=== PATIENT | male | born 1970 | race Caucasian/White ===

== ENCOUNTER → 2019-03-18 11:20 | Outpatient (BNVA) | payer BC, SELFPAY | PROVIDERS: Family Provider Nurse Practitioner Family; PCP Nurse Practitioner Family; Visit Provider Nurse Practitioner Family | DX: E07.9 Disorder of thyroid, unspecified (principal) | CPT/HCPCS: 36415; 84443 ==

== ENCOUNTER → 2019-05-22 10:24 | Outpatient (BNVA) | payer BC, SELFPAY | PROVIDERS: Family Provider Nurse Practitioner Family; PCP Nurse Practitioner Family; Visit Provider Nurse Practitioner Family | DX: Z79.899 Other long term (current) drug therapy (principal); E03.9 Hypothyroidism, unspecified; E78.2 Mixed hyperlipidemia; E55.9 Vitamin D deficiency, unspecified; J30.89 Other allergic rhinitis | CPT/HCPCS: 80053; 80061; 81001; 82306; 83036; 84443; 85025 ==

== ENCOUNTER → 2019-07-05 00:01 | Outpatient (BNVA) | payer BC, SELFPAY | PROVIDERS: Family Provider Nurse Practitioner Family; PCP Nurse Practitioner Family; Visit Provider Nurse Practitioner Family | DX: E03.9 Hypothyroidism, unspecified (principal) | CPT/HCPCS: 84443 ==

== ENCOUNTER → 2019-08-26 10:35 | Outpatient (BNVA) | payer BC, SELFPAY | PROVIDERS: Family Provider Nurse Practitioner Family; PCP Nurse Practitioner Family; Visit Provider Family Medicine | DX: E03.9 Hypothyroidism, unspecified (principal); D64.9 Anemia, unspecified | CPT/HCPCS: 82607; 82746; 83540; 84443; 85025 ==

== ENCOUNTER → 2019-08-29 12:20 | Outpatient (BNVA) | payer BC, SELFPAY | PROVIDERS: Family Provider Nurse Practitioner Family; PCP Nurse Practitioner Family; Visit Provider Nurse Practitioner Family | DX: D64.9 Anemia, unspecified (principal) | CPT/HCPCS: 82270; 82274; 85025 ==

== ENCOUNTER → 2019-10-28 10:10 | Outpatient (BNVA) | payer BC, SELFPAY | PROVIDERS: Family Provider Nurse Practitioner Family; PCP Nurse Practitioner Family; Visit Provider Nurse Practitioner Family | DX: E03.9 Hypothyroidism, unspecified (principal); D64.9 Anemia, unspecified | CPT/HCPCS: 36415; 83540; 84439; 84443; 84481 ==

== ENCOUNTER → 2019-11-27 13:49 | Outpatient (BNVA) | payer BC, SELFPAY | PROVIDERS: Family Provider Nurse Practitioner Family; PCP Nurse Practitioner Family; Visit Provider Nurse Practitioner Family | DX: E03.9 Hypothyroidism, unspecified (principal) | CPT/HCPCS: 84443 ==

== ENCOUNTER → 2020-02-11 09:44 | Outpatient (BNVA) | payer BC, SELFPAY | PROVIDERS: Family Provider Nurse Practitioner Family; PCP Nurse Practitioner Family; Visit Provider Nurse Practitioner Family | DX: E03.9 Hypothyroidism, unspecified (principal); R53.83 Other fatigue; Z79.899 Other long term (current) drug therapy | CPT/HCPCS: 80053; 81003; 83036; 84439; 84443; 84481; 85025 ==

== ENCOUNTER 2020-03-06 12:28 | Outpatient (CLI) | payer OTHER, SELFPAY ==
[2020-03-06] MEDS: iohexol 300 mg/mL 100 mL Btl IV (12:57)
--- NOTE | 2020-03-06 15:00 | CT_ITS ---
WS: [id number] CT ABDOMEN PELVIS TECHNIQUE: Contrast-enhanced CT of the abdomen and pelvis with coronal and sagittal reformatted image s. CLINICAL INFORMATION: R10.9 - Unspecified abdominal pain COMPARISON: None. DLP: All CT scans at [facility] use at least one of these dose optimization techniques: automat ed exposure control; mA and/or kV adjustment per patient size (includes targeted exams where dose is matched to clinical indication); or iterative reconstruction. FINDINGS:Mild circumferential wall thickening with submucosal enhancement involving the transverse co consuelo with a small amount of induration. Findings can be seen with infectious or inflammatory colitis. Recommend correlation for infection. Sigmoid colon is normal. No abdominal or pelvic lymphadenopathy. Small bowel appears normal. Normal terminal ileum. Diffuse fatty infiltration of the liver. Normal portal vein and splenic vein. Normal gallbladder. Nor mal GE junction. Normal spleen. Normal pancreas. Lung bases are well aerated. Adrenal glands are norm al. Normal renal parenchymal enhancement. No hydronephrosis. Left renal cyst measuring 2.0 CM. Normal caliber abdominal aorta. Normal sigmoid colon. No evidence of small or large bowel obstruction. No free fluid in the abdomen o r pelvis. Prominent prostate for patient this age measuring 4.5 cm. Recommend correlation PSA. Normal lumbar spine. CT/CT abdomen pelvis w con* [id number] IMPRESSION: 1. Mild diffuse thickening with submucosal enhancement and induration about th e transverse colon. Findings can be seen with infectious or inflammatory coliti s. Recommend clinical correlation. 2. Remainder of the colon appears normal. Normal small bowel. Normal terminal ileum. 3. No abdominal or pelvic lymphadenopathy. 4. Slightly prominent prostate for patient this age measuring 4.4 CM. Recommen d correlation PSA. 5. Incidental simple cyst left kidney measuring 2.0 CCM. 6. Small fat-containing umbilical hernia.
== END 2020-03-06 12:29 | disposition home or self-care (01) ==
LOC: RADWPI 12:32
PROVIDERS: PCP Nurse Practitioner Family; Visit Provider Family Medicine
DX: R10.9 Unspecified abdominal pain (principal); K42.9 Umbilical hernia without obstruction or gangrene; N28.1 Cyst of kidney, acquired; N40.0 Benign prostatic hyperplasia without lower urinary tract symptoms
CPT/HCPCS: 74177; Q9967

== ENCOUNTER → 2020-03-09 09:11 | Outpatient (BNVA) | payer OTHER, SELFPAY | PROVIDERS: PCP Nurse Practitioner Family; Visit Provider Nurse Practitioner Family | DX: Z12.5 Encounter for screening for malignant neoplasm of prostate (principal); N40.0 Benign prostatic hyperplasia without lower urinary tract symptoms; K92.1 Melena; K63.9 Disease of intestine, unspecified; R63.4 Abnormal weight loss; R10.30 Lower abdominal pain, unspecified | CPT/HCPCS: G0103 ==

== ENCOUNTER → 2020-03-16 15:21 | Outpatient (BNVA) | payer OTHER, SELFPAY | PROVIDERS: PCP Nurse Practitioner Family; Visit Provider Internal Medicine | DX: K63.9 Disease of intestine, unspecified (principal); Z01.812 Encounter for preprocedural laboratory examination; K92.1 Melena; Z20.828 Contact with and (suspected) exposure to other viral communicable diseases | CPT/HCPCS: 87635 ==

== ENCOUNTER 2020-03-20 07:54 | Day surgery (SDC) | payer OTHER, SELFPAY ==
[2020-03-18 13:30] VITALS: BMI 21.5
[2020-03-20 08:02] VITALS: BP 126/88; PULSE 77; RESP 16; TEMP 36.6; O2SAT 98
[2020-03-20] MEDS: sodium chloride 0.9% 1,000 ML 30 ML IV (08:18)
--- NOTE | 2020-03-20 08:27 | P.ANESASSM_ITS ---
Pre-Anesthetic Assessment Pre-Anesthetic Assessment: Height/Weight: Height 1.83 m Weight 72.121 kg Temp Pulse Resp BP Pulse Ox 98 F 77 16 126/88 98 03/20/20 08:02 03/20/20 08:02 03/20/20 08:02 03/20/20 08:02 03/20/20 08:02 Preop Diagnosis: colon wall thickening Proposed Procedure: Operation Date: 03/20/20 09:00 Proposed Procedures p EGD [id number] Z63.9 Z01.812(Not Applicable) - Kevin Landrum MD s Colonoscopy(Not Applicable) - Kevin Landrum MD Familial anesthetic complications: None Was Beta Gabby taken within 24 hours: N/A Last intake: Intake Last Liquid Date 03/19/20 Last Liquid Time 19:00 Last Solid Date 03/18/20 Last Solid Time 20:00 Social: Social History: No alcohol and No tobacco Exam: Pre-Anes Outpt Exam: alert, oriented x 3, clear to auscultation bilaterally and regular rate & rhythm Airway: Cervical ROM: WNL MP: 2 Dentition: Partials (plates) Additional comments: heller CV/HEM: CV/HEM: MO (2006 - doing well since, works in the [employer], very active) Comments: able to achieve > 4 METS Metabolic: Metabolic: Thyroid Anesthetic Plan: ASA status: 3 Anesthesia: MAC Risk of > 500 ml blood loss (7ml/kg in children): No Meds/Allergies Current Medications: Current Medications Generic Name Dose Route Start Last Admin Trade Name Freq PRN Reason Stop Dose Admin Sodium Chloride 1,000 mls @ 30 ml s/hr 03/20/20 08:00 03/20/20 08:18 Sodium Chloride 0.9% IV 03/21/20 07:59 30 mls/hr .Q24H DEBRA Administration PFSH Anesthesia PFSH: Medical History Blood in stool Colon wall thickening Encounter for medication management Enlarged prostate Environmental and seasonal allergies Fatigue GERD (gastroesophageal reflux disease) Hypothyroid Prostate cancer screening Seasonal allergic rhinitis Vitamin D deficiency Social History (Updated 03/16/20 @ 14:07 by JAVED Michelle) Smoking and tobacco status: never smoked Second hand smoke exposure: No Desire information about alcohol rehabilitation?: No Counseling given: No Desire information about substance/drug rehabilitation?: No Counseling given: No History of recent travel: No Data Anesthesia Cardiac Studies: No Data to Display
--- NOTE | 2020-03-20 09:21 | W.PM.OPSFHP ---
Same Day Surgery H&P Indication for Procedure/HPI DATE OF PROCEDURE: March 20, 2020 CHIEF COMPLAINT/INDICATIONFOR SURGICAL PROCEDURE: Blood in stool PREOP DIAGNOSIS: colon wall thickening PLANNED PROCEDRUE: Operation Date: 03/20/20 09:00 Proposed Procedures p EGD [id number] Z63.9 Z01.812(Not Applicable) - Kevin Landrum MD s Colonoscopy(Not Applicable) - Kevin Landrum MD Medications/Allergies* Allergies/Adverse Reactions Allergy/AdvReac Type Severity Reaction Status Date / Time Sulfa (Sulfonamide Allergy ADR-Itching Verified 03/20/20 07:59 Antibiotics) codeine AdvReac sick Verified 03/16/20 14:04 Current Medications: Generic Name Dose Route Start Last Admin Trade Name Freq PRN Reason Stop Dose Admin Sodium Chloride 1,000 mls @ 30 mls/hr 03/20/20 08:00 03/20/20 08:18 Sodium Chloride 0.9% IV 03/21/20 07:59 30 mls/hr .Q24H DEBRA Administration Pertinent History/Comorbid Conditions* Medical History (Updated 03/09/20 @ 22:00 by ASIA Lewis) Blood in stool Colon wall thickening Encounter for medication management Enlarged prostate Environmental and seasonal allergies Fatigue GERD (gastroesophageal reflux disease) Hypothyroid Prostate cancer screening Seasonal allergic rhinitis Vitamin D deficiency Social History Smoking and tobacco status: never smoked Second hand smoke exposure: No Desire information about alcohol rehabilitation?: No Counseling given: No Desire information about substance/drug rehabilitation?: No Counseling given: No History of recent travel: No Pertinent Exam Findings alert, oriented x 3, clear to auscultation bilaterally, regular rate & rhythm, operative site marked and procedure specific exam findings Recommendations Surgery/Procedure today Coding Level of Care Code Acute Server Software Engineer for Sourav Sequeira
[2020-03-20 09:48] VITALS: BP 103/78; PULSE 87; RESP 18; TEMP 36.1; O2SAT 97
--- NOTE | 2020-03-20 09:48 | ANE.PACU2 ---
Inpatient post-anesthesia follow up: Airway intact: Yes Vital signs: Temperature 98 F Pulse Rate 77 Respiratory Rate 16 Blood Pressure 126/88 Pulse Oximetry 98 Oxygen Delivery Me thod Room Air Oxygen Flow Rate Fraction of Inspir ed Oxygen Hydration adequate: Yes Nausea and vomiting: No Mental status: Baseline
[2020-03-20 10:22] VITALS: BP 123/73; PULSE 73; RESP 18; O2SAT 98
[2020-03-21 17:25] LABS: H. Pylori / CLO Test Negative
== END 2020-03-20 10:28 | disposition home or self-care (01) ==
PROVIDERS: PCP Nurse Practitioner Family; Visit Provider Internal Medicine
PROC: 0DJ08ZZ Inspection of Upper Intestinal Tract, Via Natural or Artificial Opening Endoscopic (ICD-10-PCS; CPT 43235; principal; 2020-03-20 09:00)
PROC: 0DJD8ZZ Inspection of Lower Intestinal Tract, Via Natural or Artificial Opening Endoscopic (ICD-10-PCS; CPT 45378; 2020-03-20 09:00)
DX: K92.1 Melena (principal); K63.9 Disease of intestine, unspecified; K29.70 Gastritis, unspecified, without bleeding; K21.9 Gastro-esophageal reflux disease without esophagitis; E03.9 Hypothyroidism, unspecified; R63.4 Abnormal weight loss; Z68.21 Body mass index [BMI] 21.0-21.9, adult; I25.2 Old myocardial infarction
CPT/HCPCS: 12345; 43239; 45378; 82274; 83630; 87077; 87493; 87506; J2704; J3490; J7030

== ENCOUNTER → 2020-05-14 11:25 | Outpatient (BNVA) | payer OTHER, SELFPAY | PROVIDERS: PCP Nurse Practitioner Family; Visit Provider Nurse Practitioner Family | DX: E78.2 Mixed hyperlipidemia (principal); E03.9 Hypothyroidism, unspecified; R53.83 Other fatigue; E55.9 Vitamin D deficiency, unspecified; J30.89 Other allergic rhinitis; Z79.899 Other long term (current) drug therapy | CPT/HCPCS: 80053; 80061; 81003; 82306; 83036; 83921; 84439; 84443; 84481; 85025 ==

== ENCOUNTER → 2020-06-24 12:05 | Outpatient (BNVA) | payer OTHER, SELFPAY | PROVIDERS: PCP Nurse Practitioner Family; Visit Provider Nurse Practitioner Family | DX: E03.9 Hypothyroidism, unspecified (principal) | CPT/HCPCS: 84443 ==

== ENCOUNTER → 2020-07-23 11:56 | Outpatient (BNVA) | payer OTHER, SELFPAY | PROVIDERS: PCP Nurse Practitioner Family; Visit Provider Nurse Practitioner Family | DX: E78.2 Mixed hyperlipidemia (principal); E03.9 Hypothyroidism, unspecified; R53.83 Other fatigue; D64.9 Anemia, unspecified | CPT/HCPCS: 80053; 80061; 82607; 82728; 83550; 84402; 84403; 84443; 85025 ==

== ENCOUNTER 2020-09-08 07:56 | Outpatient (CLI) | payer OTHER, SELFPAY ==
--- NOTE | 2020-09-08 08:00 | USCV_ITS ---
Sanders Cristobal Age: 49 Gender: M : 1970 Exam Date: 09/08/2020 08:08 Ordering Phys: JAYDEN Chand APRN Technologist: Anita Angeles Exam Location: [facility] [place] Indication: Bradycardia, other medical treatment, unspecified BP: / HR: 43 Rhythm: Sinus Technical Quality: Adequate MEASUREMENTS (Male / Female) Normal Values 2D ECHO LV Diastolic Diameter PLAX 3.9 cm 4.2 - 5.9 / 3.9 - 5.3 cm LV Systolic Diameter PLAX 3.1 cm LV Chamber Size 4.0 cm IVS Diastolic Thickness 1.5 cm 0.6 - 1.0 / 0.6 - 0.9 cm IVS Systolic Thickness 1.8 cm LVPW Diastolic Thickness 1.7 cm 0.6 - 1.0 / 0.6 - 0.9 cm LVPW Systolic Thickness 1.7 cm RV Chamber Size 2.2 cm LVOT Diameter 2.0 cm LV Ejection Fraction 2D Teich 40.6 % LV Ejection Fraction MOD 2C 64.2 % LV Ejection Fraction 2C AL 68.1 % LA Diameter 3.7 cm LA Width 2.6 cm LA Height 4.4 cm RA Width 2.9 cm RA Height 3.8 cm Aorta at Sinotubular Diameter 3.5 cm M-MODE LV Diastolic Diameter MM 4.6 cm 4.2 - 5.9 / 3.9 - 5.3 cm LV Systolic Diameter MM 2.7 cm LV Ejection Fraction MM Teich 72.0 % IVS Diastolic Thickness MM 1.1 cm 0.6 - 1.0 / 0.6 - 0.9 cm IVS Systolic Thickness MM 1.6 cm LVPW Diastolic Thickness MM 0.8 cm 0.6 - 1.0 / 0.6 - 0.9 cm LVPW Systolic Thickness MM 1.4 cm RV Diastolic Diameter MM 1.4 cm Aortic Annulus Diameter 3.7 cm LA Ao Ratio MM 1.1 MV E Point Septal Separation 0.4 cm DOPPLER AV Peak Velocity 118.0 cm/s LVOT Peak Velocity 94.0 cm/s AV Area Cont Eq vti 2.7 cm squared AV Area Cont Eq pk 2.6 cm squared MV Area PHT 2.6 cm squared Mitral E to A Ratio 1.9 MV E' Velocity 81.0 cm/s TR Peak Velocity 103.3 cm/s TR Peak Gradient 4.3 mmHg TR Mean Velocity 77.1 cm/s TR Mean Gradient 2.6 mmHg TR Velocity Time Integral 26.7 cm TV Peak E Velocity 57.0 cm/s PV Peak Velocity 56.0 cm/s RV Acceleration Time 0.2 s RV Ejection Time 0.4 s RV AcT/ET 0.5 FINDINGS Left Ventricle Normal left ventricular size, systolic function and upper normal wall thickness, with no regional wall motion abnormalities. Left ventricular ejection fraction is estimated at 60-65 %. Normal mitral inflow pattern. Right Ventricle Normal right ventricular size and systolic function. Normal right ventricle systolic pressure. Right Atrium Normal right atrial size. Right atrial pressure estimated at 3 mmHg. Left Atrium Normal left atrial size. Mitral Valve Structurally normal mitral valve. No mitral valve stenosis. Trace mitral valve regurgitation. Aortic Valve Structurally normal trileaflet aortic valve. No aortic valve stenosis. No aortic valve regurgitation. Tricuspid Valve Structurally normal tricuspid valve. No tricuspid valve stenosis. Trace tricuspid valve regurgitation. Pulmonic Valve Structurally normal pulmonic valve. No pulmonary valve stenosis. Trace pulmonary valve regurgitation. Pericardium No pericardial effusion. Aorta Normal size aortic root and proximal ascending aorta. Normal- sized inferior vena cava with normal respiratory variation. CONCLUSIONS 1. Normal left ventricular size, systolic function and upper normal wall thickness, with no regional wall motion abnormalities. Left ventricular ejection fraction is estimated at 65 %. 2. Normal right ventricular size and systolic function. 3. No significant valvular abnormality. 4. Normal pulmonary artery pressure. 5. There may not have been any significant change when compared to old echocardiogram dated 07/01/2016. Lacie Tuttle MD (Electronically Signed) Final Date: 08 September 2020 14:50 S
== END 2020-09-08 07:57 | disposition home or self-care (01) ==
PROVIDERS: PCP Nurse Practitioner Family; Visit Provider Nurse Practitioner Family
DX: Z92.89 Personal history of other medical treatment (principal); R06.02 Shortness of breath; R00.1 Bradycardia, unspecified
CPT/HCPCS: 93306

== ENCOUNTER → 2020-09-17 16:38 | Outpatient (BNVA) | payer SELFPAY | PROVIDERS: PCP Nurse Practitioner Family; Visit Provider Nurse Practitioner Family | DX: Z11.52 Encounter for screening for COVID-19 (principal); J22 Unspecified acute lower respiratory infection; R06.02 Shortness of breath | CPT/HCPCS: 87635 ==

== ENCOUNTER → 2020-11-11 12:01 | Outpatient (BNVA) | payer OTHER, SELFPAY | PROVIDERS: PCP Nurse Practitioner Family; Visit Provider Nurse Practitioner Family | DX: E55.9 Vitamin D deficiency, unspecified (principal); E03.9 Hypothyroidism, unspecified; J30.89 Other allergic rhinitis; J01.90 Acute sinusitis, unspecified; B96.89 Other specified bacterial agents as the cause of diseases classified elsewhere | CPT/HCPCS: 82306; 84443 ==

== ENCOUNTER → 2020-12-28 14:39 | Outpatient (BNVA) | payer OTHER, SELFPAY | PROVIDERS: PCP Nurse Practitioner Family; Visit Provider Nurse Practitioner Family | DX: E03.9 Hypothyroidism, unspecified (principal); R53.83 Other fatigue; E55.9 Vitamin D deficiency, unspecified | CPT/HCPCS: 80053; 82306; 84439; 84443; 85025 ==

== ENCOUNTER 2021-03-05 12:24 | Outpatient (CLI) | payer OTHER, SELFPAY ==
--- NOTE | 2021-03-05 12:45 | US_ITS ---
WS: [id number] THYROID ULTRASOUND HISTORY: E04.1 - Nontoxic single thyroid nodule COMPARISON: None available. Right lobe: 0.7 cm x 1.3 cm x 2.8 cm (w x ap x l). Volume: 1.4 cm3. Small heterogeneous thyroid. No discrete nodules or increased vascularity. Surface of the thyroid is very nodular. Left lobe: 0.7 cm x 1.1 cm x 3.7 cm (w x ap x l). Volume: 1.6 cm3. Small heterogeneous thyroid. No discrete nodules. No increased vascularity. No adenopathy. Isthmus: 0.3 cm. US/US thyroid [id number] IMPRESSION: Small shrunken heterogeneous thyroid. No nodules.
== END 2021-03-05 12:25 | disposition home or self-care (01) ==
LOC: RAD 12:26
PROVIDERS: PCP Nurse Practitioner Family; Visit Provider Family Medicine
DX: E04.1 Nontoxic single thyroid nodule (principal)
CPT/HCPCS: 76536

== ENCOUNTER → 2021-06-29 08:40 | Outpatient (BNVA) | payer OTHER, SELFPAY | PROVIDERS: PCP Nurse Practitioner Family; Visit Provider Nurse Practitioner | DX: I10 Essential (primary) hypertension (principal); E78.2 Mixed hyperlipidemia; J30.2 Other seasonal allergic rhinitis | CPT/HCPCS: 80061 ==

== ENCOUNTER → 2021-10-26 09:47 | Outpatient (BNVA) | payer OTHER, SELFPAY | PROVIDERS: PCP Nurse Practitioner Family; Visit Provider Nurse Practitioner Family | DX: I10 Essential (primary) hypertension (principal); E55.9 Vitamin D deficiency, unspecified; E78.2 Mixed hyperlipidemia; E03.9 Hypothyroidism, unspecified; R53.83 Other fatigue; E04.1 Nontoxic single thyroid nodule; R93.89 Abnormal findings on diagnostic imaging of other specified body structures | CPT/HCPCS: 80053; 80061; 82306; 84443; 85025 ==

== ENCOUNTER → 2022-06-23 15:35 | Outpatient (BNVA) | payer MEDICAID, SELFPAY | PROVIDERS: PCP Nurse Practitioner Family; Visit Provider Family Medicine | DX: J06.9 Acute upper respiratory infection, unspecified (principal); R06.02 Shortness of breath | CPT/HCPCS: 71046; 80053; 80061; 83880; 84145; 84443; 85025; 86140 ==

== ENCOUNTER → 2023-01-05 13:12 | Outpatient (BNVA) | payer OTHER, SELFPAY | PROVIDERS: PCP Nurse Practitioner Family; Visit Provider Physician Assistant | DX: M25.511 Pain in right shoulder (principal); M75.41 Impingement syndrome of right shoulder | CPT/HCPCS: 73030 ==

== ENCOUNTER → 2023-01-17 11:35 | Outpatient (BNVA) | payer OTHER, SELFPAY | PROVIDERS: PCP Nurse Practitioner Family; Visit Provider Nurse Practitioner Family | DX: J01.90 Acute sinusitis, unspecified (principal); I10 Essential (primary) hypertension; E03.9 Hypothyroidism, unspecified; E78.2 Mixed hyperlipidemia; E55.9 Vitamin D deficiency, unspecified; Z79.899 Other long term (current) drug therapy | CPT/HCPCS: 87071; 87880 ==

== ENCOUNTER → 2023-01-23 09:25 | Outpatient (BNVA) | payer OTHER, SELFPAY | PROVIDERS: PCP Nurse Practitioner Family; Visit Provider Nurse Practitioner Family | DX: E03.9 Hypothyroidism, unspecified (principal); E55.9 Vitamin D deficiency, unspecified; E78.2 Mixed hyperlipidemia; I10 Essential (primary) hypertension; Z79.899 Other long term (current) drug therapy; Z12.5 Encounter for screening for malignant neoplasm of prostate | CPT/HCPCS: 80053; 80061; 81003; 82306; 83036; 84439; 84443; 84481; 85025; G0103 ==

== ENCOUNTER → 2023-02-01 09:53 | Outpatient (BNVA) | payer OTHER, SELFPAY | PROVIDERS: PCP Nurse Practitioner Family; Visit Provider Nurse Practitioner Family | DX: E78.2 Mixed hyperlipidemia (principal); J22 Unspecified acute lower respiratory infection | CPT/HCPCS: 71046 ==

== ENCOUNTER → 2023-02-15 16:06 | Outpatient (BNVA) | payer OTHER, SELFPAY | PROVIDERS: PCP Nurse Practitioner Family; Visit Provider Nurse Practitioner Family | DX: R05.9 Cough, unspecified (principal); R05.3 Chronic cough; R06.02 Shortness of breath | CPT/HCPCS: 71046; 82785; 86003 ==

== ENCOUNTER 2023-03-23 09:47 | Outpatient (CLI) | payer OTHER, SELFPAY ==
--- NOTE | 2023-03-23 10:15 | MR_ITS ---
WS: [id number] MRI RIGHT SHOULDER HISTORY: shoulder pain COMPARISON: Radiographs 01/05/2023 TECHNIQUE: Multiplanar sequences of the shoulder joint are submitted. Mild AC joint arthritis. Small osteophytes encroaching upon the myotendinous portion supraspinatus. M ild subacromial impingement. No significant subacromial or subdeltoid fluid. Normal position of the b iceps tendon. No os acromion. No muscle atrophy or edema. There is moderate fraying of the distal supraspinatus tendon involving gonzalez th the bursal and articular surfaces of the tendon. Greater involvement along the articular surface w ith a partial tear of the distal tendon involving the articular surface. This is a small tear measuri ng approximately 5 mm. No tendon retraction. No additional tendinopathy or tendon tear. No labral tea r. IMPRESSION: 1. Tendinopathy involving the distal supraspinatus tendon with fraying along the both the articular and bursal surfaces of the tendon. 2. Partial tear involves the distal articular surface of the supraspinatus tendon. 3. No muscle atrophy or edema. 4. Mild AC joint arthritis. 5. Minimal subacromial impingement.
== END 2023-03-23 09:48 | disposition home or self-care (01) ==
LOC: RAD 09:47
PROVIDERS: PCP Nurse Practitioner Family; Visit Provider Physician Assistant
DX: M75.41 Impingement syndrome of right shoulder (principal); M75.111 Incomplete rotator cuff tear or rupture of right shoulder, not specified as traumatic; M19.011 Primary osteoarthritis, right shoulder
CPT/HCPCS: 73221

== ENCOUNTER → 2023-04-25 08:17 | Outpatient (BNVA) | payer OTHER, SELFPAY | PROVIDERS: PCP Nurse Practitioner Family; Visit Provider Nurse Practitioner Family | DX: E78.2 Mixed hyperlipidemia (principal) | CPT/HCPCS: 80061 ==

== ENCOUNTER 2023-06-21 07:08 | Outpatient (CLI) | payer OTHER, SELFPAY | END 2023-06-21 07:09 | disposition home or self-care (01) | LOC: RT 07:09 | PROVIDERS: PCP Nurse Practitioner Family; Visit Provider Internal Medicine Pulmonary Disease | DX: R05.3 Chronic cough (principal); R06.02 Shortness of breath | CPT/HCPCS: 94010; 94726; 94729 ==

== ENCOUNTER → 2023-07-04 08:14 | Outpatient (BNVA) | payer OTHER, SELFPAY | PROVIDERS: PCP Nurse Practitioner Family; Visit Provider Nurse Practitioner Family | DX: E03.9 Hypothyroidism, unspecified (principal); E78.2 Mixed hyperlipidemia | CPT/HCPCS: 80061; 82040; 84270; 84403; 84443 ==

== ENCOUNTER → 2023-07-12 13:22 | Outpatient (BNVA) | payer OTHER, SELFPAY | PROVIDERS: PCP Nurse Practitioner Family; Visit Provider Internal Medicine Pulmonary Disease | DX: J22 Unspecified acute lower respiratory infection; I10 Essential (primary) hypertension | CPT/HCPCS: 71046 ==

== ENCOUNTER → 2023-07-13 10:06 | Outpatient (BNVA) | payer OTHER, SELFPAY | PROVIDERS: PCP Nurse Practitioner Family; Visit Provider Nurse Practitioner Family | DX: I25.10 Atherosclerotic heart disease of native coronary artery without angina pectoris (principal) | CPT/HCPCS: 93005 ==

== ENCOUNTER → 2023-11-16 09:16 | Outpatient (BNVA) | payer OTHER, SELFPAY | PROVIDERS: PCP Nurse Practitioner Family; Visit Provider Nurse Practitioner Family | DX: E78.2 Mixed hyperlipidemia (principal); E03.9 Hypothyroidism, unspecified; J30.89 Other allergic rhinitis; I25.10 Atherosclerotic heart disease of native coronary artery without angina pectoris; E55.9 Vitamin D deficiency, unspecified; I10 Essential (primary) hypertension; Z79.899 Other long term (current) drug therapy | CPT/HCPCS: 80053; 80061; 81003; 82306; 83036; 84443; 85025 ==

== ENCOUNTER → 2024-04-10 08:57 | Outpatient (BNVA) | payer OTHER, SELFPAY | PROVIDERS: PCP Nurse Practitioner Family; Visit Provider Nurse Practitioner Family | DX: I10 Essential (primary) hypertension (principal); E03.9 Hypothyroidism, unspecified; R53.83 Other fatigue; N40.0 Benign prostatic hyperplasia without lower urinary tract symptoms; E55.9 Vitamin D deficiency, unspecified; J32.9 Chronic sinusitis, unspecified; E78.2 Mixed hyperlipidemia; J30.89 Other allergic rhinitis | CPT/HCPCS: 80053; 80061; 81003; 82306; 84439; 84443; 85025; G0103 ==

== ENCOUNTER → 2024-12-05 08:16 | Outpatient (BNVA) | payer OTHER, SELFPAY | PROVIDERS: PCP Nurse Practitioner Family; Visit Provider Nurse Practitioner Family | DX: I10 Essential (primary) hypertension (principal); R53.83 Other fatigue | CPT/HCPCS: 80053; 80061; 84436; 84443; 85025 ==